=== PATIENT | male | born 1975 | race Caucasian/White ===

== ENCOUNTER 2024-02-14 20:51 | Inpatient (IN) | payer OTHER ==
[~2024-02-14] VITALS: Ht 182.9 cm; Wt 93.5 kg
[2024-02-14 21:25] LABS: Basophils # (auto) 0.1 10 ^3/uL (0-0.2); Basophils % (auto) 0.5 % (0.0-2.0); Eosinophils # (auto) 0.3 10 ^3/uL (0-0.8); Eosinophils % (auto) 2.2 % (0.0-7.0); Hematocrit 43.3 % (41.0-53.0); Hemoglobin 14.7 g/dL (13.5-17.5); Lymphocytes % (auto) 22.2 % (10.0-50.0); Mean Corpuscular Hemoglobin 31.9 pg (28.0-32.0); Mean Corpuscular Hgb Conc. 33.9 g/dL (32.0-36.0); Mean Corpuscular Volume 94.2 fL (80.0-100.0); Monocytes # (auto) 0.9 10 ^3/uL (0-1.3); Monocytes % (auto) 6.6 % (0.0-12.0); Neutrophils # (auto) 9.1 10 ^3/uL (1.6-8.6); Neutrophils % (auto) 68.5 % (37.0-80.0); Nucleated Red Blood Cells % 0.1 %; Red Cell Distribution Width 12.9 % (11.8-14.3); White Blood Cell 13.3 10^3/uL (4.4-10.8)
[2024-02-14 21:39] LABS: Chloride 107 mmol/L (98-107); Potassium 4.1 mmol/L (3.5-5.1); Sodium 139 mmol/L (136-145)
[2024-02-14 21:40] LABS: Anion Gap 5 (5-15); Carbon Dioxide 27 mmol/L (20-30)
[2024-02-14 21:41] LABS: Calcium 10.5 mg/dL (8.5-10.1)
[2024-02-14 21:46] LABS: Blood Urea Nitrogen 16 mg/dL (9-23); Glucose 117 mg/dL (74-106)
[2024-02-15] MEDS ORDERED: DOCUSATE SOD 100 MG CAP PO PRN (04:30)
[2024-02-15] MEDS ORDERED: HYDROcodone-ACET 5/325MG TAB PO PRN (04:30)
[2024-02-15] MEDS ORDERED: NITROGLYCERIN 0.4 MG SL TAB SL PRN (04:30)
[2024-02-15] MEDS ORDERED: ACETAMINOPHEN 325 MG TAB PO PRN (04:30)
[2024-02-15] MEDS ORDERED: MORPHINE SULFATE INJ 2 MG/ml SYRG IV PRN (04:30)
[2024-02-15 05:45] VITALS: PULSE 85; RESP 18; O2SAT 98
[2024-02-15] MEDS: ONDANSETRON HCL 4 MG/2 ML VIAL IV ONE (06:01)
[2024-02-15] MEDS: SODIUM CHLORIDE 0.9% 1,000 ML IV SCH (06:02)
[2024-02-15] MEDS: ENOXAPARIN SOD 100 MG/1 ML SYRINGE SC ONE (06:02)
[2024-02-15] MEDS: MORPHINE SULFATE 4 MG/ML SYR/VIAL IV ONE (06:02)
[2024-02-15 06:38] LABS: Basophils # (auto) 0.1 10 ^3/uL (0-0.2); Basophils % (auto) 0.3 % (0.0-2.0); Eosinophils # (auto) 0.2 10 ^3/uL (0-0.8); Eosinophils % (auto) 1.2 % (0.0-7.0); Hematocrit 43.8 % (41.0-53.0); Hemoglobin 15.1 g/dL (13.5-17.5); Lymphocytes # (auto) 2.4 10 ^3/uL (0.4-5.4); Lymphocytes % (auto) 15.5 % (10.0-50.0); Mean Corpuscular Hemoglobin 32.5 pg (28.0-32.0); Mean Corpuscular Hgb Conc. 34.6 g/dL (32.0-36.0); Monocytes # (auto) 1.1 10 ^3/uL (0-1.3); Monocytes % (auto) 7.3 % (0.0-12.0); Neutrophils # (auto) 11.9 10 ^3/uL (1.6-8.6); Neutrophils % (auto) 75.7 % (37.0-80.0); Nucleated Red Blood Cells % 0.1 %; Red Blood Cells 4.65 10^6/uL (4.5-5.90); Red Cell Distribution Width 12.5 % (11.8-14.3); White Blood Cell 15.8 10^3/uL (4.4-10.8)
[2024-02-15 07:08] LABS: Alanine Aminotransferase 42 U/L (7-40); Albumin 4.9 g/dL (3.2-4.8); Alkaline Phosphatase 65 U/L (46-116); Anion Gap 7 (5-15); Aspartate Aminotransferase 24 U/L (13-40); BUN/Creatinine Ratio 12.8 (10.0-20.0); Bilirubin, Total 0.6 mg/dL (0.2-1.0); Blood Urea Nitrogen 15 mg/dL (9-23); Calcium 10.5 mg/dL (8.5-10.1); Carbon Dioxide 25 mmol/L (20-30); Chloride 106 mmol/L (98-107); Glucose 109 mg/dL (74-106); Potassium 3.7 mmol/L (3.5-5.1); Sodium 138 mmol/L (136-145); Total Protein 7.2 g/dL (5.7-8.2)
[2024-02-15] MEDS: ONDANSETRON HCL 4 MG/2 ML VIAL IV PRN (09:21)
[2024-02-15] MEDS: MORPHINE SULFATE INJ 2 MG/ml SYRG IV PRN (09:21)
[2024-02-15] MEDS: ASPirin 81 mg TAB PO SCH (09:51)
[2024-02-15 10:30] VITALS: PULSE 71; RESP 18; O2SAT 98
[2024-02-15 11:01] LABS: LDL Cholesterol 127 mg/dL (< 100); Triglycerides 220 mg/dL (< 150)
[2024-02-15 11:03] LABS: Cholesterol 196 mg/dL (< 200); HDL Cholesterol 39 mg/dL (40-59)
[2024-02-15 13:03] LABS: Urine Bacteria None Seen /hpf (None Seen)
[2024-02-15 13:26] LABS: Amphetamine Screen, Urine Neg (NEGATIVE)
[2024-02-15 13:27] LABS: Barbiturate Scree,Urine Neg (NEGATIVE); Benzodiazephine Screen, Urine Neg (NEGATIVE); Cocaine Screen, Urine Neg (NEGATIVE); Opiate Scree,Urine Pos (NEGATIVE)
[2024-02-15 13:28] LABS: Cannabinoid Screen, Urine Neg (NEGATIVE); Phencyclidine Screen, Urine Neg (NEGATIVE)
[2024-02-15 14:46] LABS: Urine Blood TRACE /uL (Negative); Urine Clarity Clear (Clear); Urine Color Yellow (Yellow); Urine Hyaline Cast FEW /lpf (0 - 2); Urine Mucus FEW (None Seen); Urine Protein, UAD TRACE (Negative); Urine Specific Gravity 1.021 (1.001-1.035); Urine Urobilinogen Normal (Negative); Urine WBC 5 /hpf (0 - 3); Urine pH 6.5 (5.0-9.0)
[2024-02-15 17:51] VITALS: BP 140/89; PULSE 77; RESP 18; TEMP 99.1; O2SAT 97
[2024-02-15] MEDS ORDERED: EZET10TA22 PO (19:15)
[2024-02-15] MEDS ORDERED: FENO145T27 OR (19:15)
[2024-02-15] MEDS ORDERED: OMEP-434 PO (19:15)
[2024-02-15 20:00] VITALS: PULSE 85
[2024-02-15 21:00] VITALS: BP 136/95; PULSE 83; RESP 20; TEMP 98.4; O2SAT 98
[2024-02-15] MEDS: ATORVASTATIN 20 MG TAB PO SCH (21:30)
[2024-02-16] VITALS (9 sets, daily range): BP systolic 125–148; BP diastolic 78–92; PULSE 67–100; RESP 16–20; TEMP 97.2–98.4; O2SAT 93–98
[2024-02-16 06:51] LABS: Basophils # (auto) 0.1 10 ^3/uL (0-0.2); Basophils % (auto) 0.4 % (0.0-2.0); Eosinophils # (auto) 0.3 10 ^3/uL (0-0.8); Eosinophils % (auto) 2.1 % (0.0-7.0); Hematocrit 44.9 % (41.0-53.0); Hemoglobin 15.7 g/dL (13.5-17.5); Lymphocytes # (auto) 2.4 10 ^3/uL (0.4-5.4); Mean Corpuscular Volume 94.4 fL (80.0-100.0); Monocytes # (auto) 1.1 10 ^3/uL (0-1.3); Monocytes % (auto) 8.7 % (0.0-12.0); Neutrophils # (auto) 8.8 10 ^3/uL (1.6-8.6); Neutrophils % (auto) 69.8 % (37.0-80.0); Nucleated Red Blood Cells % 0.1 %; Red Blood Cells 4.76 10^6/uL (4.5-5.90); Red Cell Distribution Width 12.9 % (11.8-14.3); White Blood Cell 12.5 10^3/uL (4.4-10.8)
[2024-02-16 07:08] LABS: Alanine Aminotransferase 46 U/L (7-40); Albumin 4.8 g/dL (3.2-4.8); Alkaline Phosphatase 68 U/L (46-116); Anion Gap 4 (5-15); Aspartate Aminotransferase 30 U/L (13-40); BUN/Creatinine Ratio 12.3 (10.0-20.0); Bilirubin, Total 0.7 mg/dL (0.2-1.0); Blood Urea Nitrogen 13 mg/dL (9-23); Calcium 10.1 mg/dL (8.5-10.1); Carbon Dioxide 28 mmol/L (20-30); Chloride 104 mmol/L (98-107); Glucose 103 mg/dL (74-106); Potassium 4.1 mmol/L (3.5-5.1); Sodium 136 mmol/L (136-145); Total Protein 7.2 g/dL (5.7-8.2)
[2024-02-17 05:13] VITALS: BP 124/81; PULSE 82; RESP 18; TEMP 98.3; O2SAT 94
[2024-02-17 08:00] VITALS: PULSE 76; RESP 20
[2024-02-17] MEDS ORDERED: ATOR-507 PO (09:36)
[2024-02-17 10:07] VITALS: BP 115/77; PULSE 76; RESP 20; TEMP 97.9; O2SAT 96
[2024-02-17 10:14] VITALS: BP_SYST 115; BP_DIAS 47; BP_DIAS 77; PULSE 76; RESP 20; TEMP 97.9; O2SAT 96
[2024-02-17 10:21] VITALS: BP 115/77
== END 2024-02-17 11:40 | disposition home or self-care (01) | DRG 303 ==
LOC: EDBD 20:51 → ER 20:51 → TELE-EAST 02-15 04:33 → TELE 02-15 04:33 → TELE-EAST 02-15 17:13
PROVIDERS: ADMIT Nurse Practitioner Family; ATTEND Family Medicine
DX: I25.10 Atherosclerotic heart disease of native coronary artery without angina pectoris (principal); K21.9 Gastro-esophageal reflux disease without esophagitis; E78.00 Pure hypercholesterolemia, unspecified; F17.210 Nicotine dependence, cigarettes, uncomplicated; Z82.49 Family history of ischemic heart disease and other diseases of the circulatory system; Z90.49 Acquired absence of other specified parts of digestive tract; Z79.899 Other long term (current) drug therapy; Z53.29 Procedure and treatment not carried out because of patient's decision for other reasons
CPT/HCPCS: 36415; 71045; 74176; 80048; 80053; 80061; 80307; 81001; 83036; 84443; 84484; 85025; 93005; 93306; 99291; G0378; J2405